=== PATIENT | male | born 1990 | race American Indian/Alaskan Native ===

== ENCOUNTER 2018-01-01 12:21 | Emergency (ER) | payer SELFPAY ==
[2018-01-01 13:30] VITALS: BP 150/93
[2018-01-01] MEDS ORDERED: DELTASONE PO ONE (14:41)
[2018-01-01] MEDS ORDERED: VIBRAMYCIN PO ONE (14:41)
[2018-01-01] MEDS ORDERED: DUONEB *Not for PRN Use IH ONE (14:41)
--- NOTE | 2018-01-01 14:43 | Emergency Department Report ---
ED General Adult HPI - General Chief complaint: Upper Respiratory Infection Stated complaint: CHEST COLD/BLOOD GLUCOSE HIGH Time Seen by Provider: 01/01/18 14:37 Source: patient Mode of arrival: Ambulatory Limitations: No Limitations - History of Present Illness Initial comments: Mr. Taylor is a 27-year-old male with history of obesity and tobacco abuse. He was sent from medical clinic for evaluation of shortness of breath cough wheezing and also hyperglycemia. He has not been treated for diabetes and over 1 year. Subjective fever at home. Yellow sputum. No history of asthma. He denies any pain. - Related Data Previous Rx's Medication Instructions Recorded Last Taken Type Doxycycline Hyclate [Doxycycline 100 mg PO Q12HR 7 Days #14 tab 01/01/18 Unknown Rx Hyclate TAB] metFORMIN [Glucophage] 500 mg PO BID 30 Days #60 tablet 01/01/18 Unknown Rx Allergies Allergy/AdvReac Type Severity Reaction Status Date / Time No Known Allergies Allergy Unverified 01/01/18 13:29 ED Review of Systems ROS: Stated complaint: CHEST COLD/BLOOD GLUCOSE HIGH Other details as noted in HPI Comment: All other systems reviewed and negative Constitutional: fever, malaise Respiratory: cough, shortness of breath, wheezing Cardiovascular: denies: chest pain ED Past Medical Hx - Past Medical History Hx Diabetes: Yes - Social History Smoking Status: Current Every Day Smoker - Medications Home Medications: Home Medications Medication Instructions Recorded Confirmed Last Taken Type Doxycycline Hyclate [Doxycycline 100 mg PO Q12HR 7 Days #14 tab 01/01/18 Unknown Rx Hyclate TAB] metFORMIN [Glucophage] 500 mg PO BID 30 Days #60 tablet 01/01/18 Unknown Rx ED Physical Exam - General Limitations: No Limitations General appearance: alert, in no apparent distress - Head Head exam: Present: atraumatic, normocephalic - Eye Eye exam: Present: normal appearance - ENT ENT exam: Present: mucous membranes moist - Neck Neck exam: Present: normal inspection - Respiratory Respiratory exam: Present: normal lung sounds bilaterally, wheezes, decreased breath sounds (left side). Absent: respiratory distress, rales, rhonchi, stridor, chest wall tenderness, accessory muscle use - Cardiovascular Cardiovascular Exam: Present: regular rate, normal rhythm, normal heart sounds. Absent: systolic murmur, diastolic murmur, rubs, gallop - GI/Abdominal GI/Abdominal exam: Present: soft, normal bowel sounds. Absent: distended, tenderness, guarding, rebound - Rectal Rectal exam: Present: deferred - Extremities Exam Extremities exam: Present: normal inspection - Back Exam Back exam: Present: normal inspection - Neurological Exam Neurological exam: Present: alert, oriented X3 - Psychiatric Psychiatric exam: Present: normal affect, normal mood - Skin Skin exam: Present: warm, dry, intact, normal color. Absent: rash ED Course Vital Signs 01/01/18 13:27 Temperature 98 F Pulse Rate 104 H Respiratory 18 Rate Blood Pressure 150/93 O2 Sat by Pulse 99 Oximetry ED Medical Decision Making - Radiology Data Radiology results: report reviewed No acute process according to radiologist. - Medical Decision Making Review chest x-ray report. Ms. Taylor presents with acute bronchitis. Antibiotics are indicated due to severe symptoms history of tobacco abuse. I prescribed doxycycline and metformin for history of diabetes Critical care attestation.: If time is entered above; I have spent that time in minutes in the direct care of this critically ill patient, excluding procedure time. ED Disposition Clinical Impression: Acute bronchitis, History of diabetes mellitus Disposition: DC-01 TO HOME OR SELFCARE Is pt being admited?: No Does the pt Need Aspirin: No Condition: Stable Instructions: Acute Bronchitis (ED), Diabetes Mellitus Type 2 in Adults (ED) Prescriptions: Doxycycline Hyclate [Doxycycline Hyclate TAB] 100 mg PO Q12HR 7 Days #14 tab metFORMIN [Glucophage] 500 mg PO BID 30 Days #60 tablet Referrals: PRIMARY CARE, [Primary Care Provider] - 3-5 Days Time of Disposition: 15:48
--- NOTE | 2018-01-01 15:42 | XRay Report ---
ROUTINE CHEST, TWO VIEWS: HISTORY: Fever, productive cough. The trachea, heart, mediastinal contour, lung chowdhury and bony thorax are unremarkable. IMPRESSION: Unremarkable chest x-ray.
== END 2018-01-01 15:53 | disposition home or self-care (01) ==
LOC: ED 12:21
DX: J20.9 Acute bronchitis, unspecified (principal); F17.200 Nicotine dependence, unspecified, uncomplicated; E11.9 Type 2 diabetes mellitus without complications
CPT/HCPCS: 71046; 94640; 99283; J7512

== ENCOUNTER 2021-10-25 09:54 | Outpatient (CLI) | payer BC ==
--- NOTE | 2021-10-25 11:03 | XRay Report ---
Right knee 3 views INDICATION: Knee pain IMPRESSION: Advanced tricompartmental degenerative osteoarthrosis. Significant joint space narrowing and patellofemoral joint medial joint compartment. No acute fracture dislocation Signer Name: Brad Britt MD Signed: 10/25/2021 10:59 AM Workstation Name: [id number]
== END 2021-10-25 09:55 | disposition home or self-care (01) ==
LOC: XRAY 09:54
PROVIDERS: ATTEND Orthopaedic Surgery
DX: M17.0 Bilateral primary osteoarthritis of knee (principal)
CPT/HCPCS: 73565